=== PATIENT | male | born 1990 | race American Indian/Alaskan Native ===

== ENCOUNTER 2019-06-24 04:54 | Emergency (ER) | payer OTHER ==
--- NOTE | 2019-06-24 05:14 | Emergency Department Report ---
<DIMPLE MERCER - Last Filed: 06/24/19 07:06> ED Abdominal Pain HPI - General Chief Complaint: Abdominal Pain Stated Complaint: ABD PAIN Time Seen by Provider: 06/24/19 05:08 Source: patient Mode of arrival: Ambulatory Limitations: No Limitations - History of Present Illness Initial Comments: Mr Joiner is s 29 y/o aam who presents for generalized abd pain and cramping x 1 week. pt denies n/v no fever or chills, no melena. state hard stools "rabbit pellets. pt is tolerating po intake. no hx of gerd, ibs, or crohns. MD Complaint: abdominal pain Onset/Timin -: week(s) Location: LLQ, RLQ Radiation: LLQ, RLQ Migration to: no migration Severity: moderate Severity scale (0 -10): 5 Quality: cramping Consistency: constant Improves With: nothing Worsens With: nothing Associated Symptoms: diarrhea, constipation. denies: nausea, vomiting, fever, chills, dysuria, melena - Related Data Previous Rx's Medication Instructions Recorded Last Taken Type Docusate Sodium [Colace] 100 mg PO BID PRN #20 capsule 06/24/19 Unknown Rx HYDROcodone/APAP 7.5-325 [Warrens 1 each PO Q8HR PRN #12 tablet 06/24/19 Unknown Rx 7.5/325] Allergies Allergy/AdvReac Type Severity Reaction Status Date / Time No Known Allergies Allergy Unverified 06/24/19 06:01 ED Review of Systems Constitutional: denies: chills, fever Eyes: denies: eye pain, eye discharge, vision change ENT: denies: ear pain, throat pain Respiratory: denies: cough, shortness of breath, wheezing Cardiovascular: denies: chest pain, palpitations Endocrine: no symptoms reported Gastrointestinal: abdominal pain, diarrhea, constipation. denies: nausea, vomiting, hematemesis, melena, hematochezia Genitourinary: denies: urgency, dysuria, frequency, hematuria Musculoskeletal: denies: back pain, joint swelling, arthralgia Skin: denies: rash, lesions Neurological: denies: headache, weakness, paresthesias Psychiatric: as per HPI Hematological/Lymphatic: denies: easy bleeding, easy bruising ED Past Medical Hx - Past Medical History Previous Medical History?: No - Surgical History Past Surgical History?: No - Social History Smoking Status: Never Smoker Substance Use Type: None - Medications Home Medications: Home Medications Medication Instructions Recorded Confirmed Last Taken Type Docusate Sodium [Colace] 100 mg PO BID PRN #20 capsule 06/24/19 Unknown Rx HYDROcodone/APAP 7.5-325 [Warrens 1 each PO Q8HR PRN #12 tablet 06/24/19 Unknown Rx 7.5/325] ED Physical Exam - General Limitations: No Limitations General appearance: alert, in no apparent distress - Head Head exam: Present: atraumatic, normocephalic - Eye Eye exam: Present: normal appearance, PERRL, EOMI Pupils: Present: normal accommodation - ENT ENT exam: Present: mucous membranes moist - Neck Neck exam: Present: normal inspection - Respiratory Respiratory exam: Present: normal lung sounds bilaterally. Absent: respiratory distress, wheezes - Cardiovascular Cardiovascular Exam: Present: regular rate, normal rhythm, normal heart sounds. Absent: systolic murmur, diastolic murmur, rubs, gallop - GI/Abdominal GI/Abdominal exam: Present: distended, tenderness (bilat lower abd), normal bowel sounds. Absent: guarding, rebound, rigid, bruit, hernia - Rectal Rectal exam: Present: deferred - exam: Present: other (deferred) - Extremities Exam Extremities exam: Present: normal inspection, full ROM. Absent: tenderness - Back Exam Back exam: Present: normal inspection, full ROM. Absent: tenderness, CVA tenderness (R), CVA tenderness (L) - Neurological Exam Neurological exam: Present: alert, oriented X3, CN II-XII intact, normal gait - Psychiatric Psychiatric exam: Present: normal affect, normal mood - Skin Skin exam: Present: warm, dry, intact, normal color. Absent: rash ED Medical Decision Making - Lab Data Result diagrams: 06/24/19 05:36 06/24/19 05:36 Labs 06/24/19 06/24/19 06/24/19 05:36 05:36 05:57 WBC 8.1 RBC 5.22 H Hgb 14.6 Hct 44.3 MCV 85 MCH 28 MCHC 33 RDW 12.7 L Plt Count 195 Sodium 133 L Potassium 4.0 Chloride 96.2 L Carbon Dioxide 20 L Anion Gap 21 BUN 7 L Creatinine 0.8 Estimated GFR > 60 BUN/Creatinine Ratio 9 Glucose 317 H Calcium 9.1 Total Bilirubin 0.20 AST 47 H ALT 37 Alkaline Phosphatase 76 Total Protein 8.2 Albumin 4.0 Albumin/Globulin Ratio 1.0 Lipase 19 Urine Color Yellow Urine Turbidity Clear Urine pH 6.0 Ur Specific [place] 1.024 Urine Protein 100 mg/dl Urine Glucose (UA) >=500 Urine Ketones Tr Urine Blood Neg Urine Nitrite Neg Urine Bilirubin Neg Urine Urobilinogen < 2.0 Ur Leukocyte Esterase Neg Urine WBC (Auto) 29.0 H Urine RBC (Auto) 1.0 Urine Mucus 1+ - Radiology Data Radiology results: report reviewed, image reviewed Findings [facility] [address] [place] [address] XRay Report Signed Patient: GIRMA JOINER MR#: [id number] : 1990 Acct:[id number] Age/Sex: 29 / M ADM Date: 06/24/19 Loc: ED Attending Dr: Ordering Physician: DIMPLE MERCER NP Date of Service: 06/24/19 Procedure(s): XR abdomen 1V ap Accession Number(s): [id number] cc: DIMPLE MERCER NP Fluoro Time In Minutes: ABDOMEN 1 VIEW(S) INDICATION / CLINICAL INFORMATION: Generalized abdominal pain. COMPARISON: None available. FINDINGS: TUBES / LINES: None. BOWEL GAS PATTERN: The bowel gas pattern is nonobstructive. ADDITIONAL FINDINGS: No radiodensities overlie the abdomen to suggest obs tructing renal or ureteral stone. Evaluation of bony structures demonstrates no acute bony abnormality. IMPRESSION: 1. No radiographic evidence of acute intra-abdominal process. Signer Name: Veronica Zavala MD Signed: 06/24/2019 5:42 AM Workstation Name: [id number] Transcribed By: EB Dictated By: Veronica Zavala MD Electronically Authenticated By: Veronica Zavala MD Signed Date/Time: 06/24/19541 DD/ 7 TD/TT: - Medical Decision Making pt pending CT Abd and Pelvis, pt care signed tut to Jonathan REED will dispo appropriately ED Disposition Clinical Impression: Rectal malignant neoplasm, Abdominal pain Disposition: DC-01 TO HOME OR SELFCARE Condition: Stable Instructions: Colorectal Cancer (ED) Prescriptions: Docusate Sodium [Colace] 100 mg PO BID PRN #20 capsule PRN Reason: Constipation HYDROcodone/APAP 7.5-325 [Warrens 7.5/325] 1 each PO Q8HR PRN #12 tablet PRN Reason: Pain Referrals: STEVO COLBY MD [Staff Physician] - 3-5 Days DIPIKA KHAN MD [Referring] - 3-5 Days GAIL BATRES DO [Staff Physician] - 3-5 Days Forms: Work/School Release Form(ED) <NIECY PHAN - Last Filed: 06/24/19 10:14> ED Review of Systems ROS: Stated complaint: ABD PAIN Other details as noted in HPI ED Course Vital Signs 06/24/19 04:57 Temperature 98.4 F Pulse Rate 106 H Respiratory 18 Rate Blood Pressure 150/100 O2 Sat by Pulse 95 Oximetry ED Medical Decision Making - Lab Data Result diagrams: 06/24/19 05:36 06/24/19 05:36 - Radiology Data Patient: GIRMA JOINER MR#: [id number] : 1990 Acct:[id number] Age/Sex: 29 / M ADM Date: 06/24/19 Loc: ED Attending Dr: Ordering Physician: DIMPLE MERCER NP Date of Service: 06/24/19 Procedure(s): CT abdomen pelvis w con Accession Number(s): [id number] cc: DIMPLE MERCER NP CT ABDOMEN AND PELVIS WITH CONTRAST INDICATION / CLINICAL INFORMATION: Abdominal pain. Duration one week TECHNIQUE: Axial CT images were obtained through the abdomen and pelvis after 100 mL Omnipaque [address] scans at this location are performed using CT dose reduction for ALARA by means of automated exposure control. COMPARISON: Abdominal radiograph from earlier the same day FINDINGS: LOWER CHEST: Mild platelike atelectasis at the lung bases. LIVER: No discrete liver lesion is identified. Subtle heterogeneity of enhancement in the liver is felt more likely reflective of inhomogeneous perfusion than presence of discrete mass lesion/s. BILIARY SYSTEM: No significant abnormality. PANCREAS: No significant abnormality. SPLEEN: No significant abnormality. ADRENALS: No significant abnormality. KIDNEYS and URETERS: No significant abnormality. STOMACH / BOWEL: The stomach and small intestine are unremarkable. The appendix is prominent with 1 cm diameter; however, there is no periappendiceal inflammatory change, and there are foci of gas seen in the lumen of the appendix. Acute appendicitis is felt unlikely. The terminal ileum at the ileocecal valve appears abnormally thickened, and there are multiple enlarged mesocolic nodes at this site, with a confluent martin mass in this region measuring 2.7 x 1.7 cm on series 2 image 97. In the rectum, there is an eccentrically located mass at the right side that measures 4.2 cm AP by 2.5 cm in thickness and at least 3.4 cm in craniocaudal length (series 2 image 148). There are enlarged perirectal nodes as well as multiple enlarged nodes along the course of the sigmoid colon. PERITONEUM: Trace perihepatic free fluid is present over the dome of the right lobe. No free air. No fluid collection. LYMPH NODES: In addition to the lymphadenopathy described above in the region of the cecum, along the sigmoid colon and in the perirectal space, there are numerous enlarged retroperitoneal lymph nodes in the abdomen. For instance, a 1.1 cm short axis left common iliac chain node on series 2 image 115, enlarged node at the root of the mesentery on image 82 1.2 cm in short axis. Multiple prominent central mesenteric nodes are also noted in the mid abdomen, for instance 0.9 cm node centrally on series 2 image 63 and slightly more anterior subcentimeter node on image 64. Scattered, mildly prominent mesocolic nodes are present along the entire course of the colon. VASCULAR STRUCTURES: No significant abnormality. URINARY BLADDER: No significant abnormality. REPRODUCTIVE ORGANS: No significant abnormality. ADDITIONAL FINDINGS: None. SKELETAL SYSTEM: No significant abnormality. IMPRESSION: 1. Findings are highly concerning for malignancy involving the rectum with martin metastases, and there is likely a synchronous malignancy in the cecum or terminal ileum, also with regional martin metastases. Further evaluation with endoscopy for biopsy is recommended. PET/CT also will likely be useful in this setting to evaluate the extent of metastatic involvement. Given the patient's age, underlying genetic factors such as HNPCC/Cisneros syndrome should be considered. 2. It appears that there is a trace volume of perihepatic fluid over the dome, nonspecific. In this setting, however, the possibility of peritoneal metastasis must be considered. I do not see any discrete peritoneal nodules. Signer Name: Mario Reilly MD Signed: 06/24/2019 9:12 AM Workstation Name: [id number] Transcribed By: KINGSLEY Dictated By: Mario Reilly MD Electronically Authenticated By: Mario Reilly MD Signed Date/Time: 06/24/19911 DD/ 0 TD/TT: - Medical Decision Making Review of patient's CT of abdomen shows a patient has colorectal metastatic cancer. Discussed with we will refer patient to colorectal provider as well as general surgeon and her primary care provider. I spoke with patient in length the importance of being followed up as soon as possible. Patient will be discharged home on pain medication and stool softener. Patient verbalized understanding Critical care attestation.: If time is entered above; I have spent that time in minutes in the direct care of this critically ill patient, excluding procedure time. ED Disposition Is pt being admited?: No Does the pt Need Aspirin: No
[2019-06-24] MEDS ORDERED: SODIUM CHLORIDE 0.9% 1000 ML 1,000 ML IV ONE (05:17)
--- NOTE | 2019-06-24 05:46 | XRay Report ---
ABDOMEN 1 VIEW(S) INDICATION / CLINICAL INFORMATION: Generalized abdominal pain. COMPARISON: None available. FINDINGS: TUBES / LINES: None. BOWEL GAS PATTERN: The bowel gas pattern is nonobstructive. ADDITIONAL FINDINGS: No radiodensities overlie the abdomen to suggest obstructing renal or ureteral s tone. Evaluation of bony structures demonstrates no acute bony abnormality. IMPRESSION: 1. No radiographic evidence of acute intra-abdominal process. Signer Name: Veronica Zavala MD Signed: 06/24/2019 5:42 AM Workstation Name: [id number]
[2019-06-24 06:25] LABS: Hematocrit 44.3 % (35.5-45.6); Hemoglobin 14.6 gm/dl (11.8-15.2); Mean Corpuscular HGB Conc 33 % (32-34); Mean Corpuscular Volume 85 fl (84-94); Platelet Count 195 K/mm3 (140-440); Red Blood Count 5.22 M/mm3 (3.65-5.03); Red Cell Distribution Width 12.7 % (13.2-15.2)
[2019-06-24 06:30] LABS: Alanine Aminotransferase 37 units/L (7-56); BUN/Creatinine Ratio 9; Blood Urea Nitrogen 7 mg/dL (9-20); Calcium 9.1 mg/dL (8.4-10.2); Hemolysis Index 57
[2019-06-24 07:00] LABS: Bilirubin,Urine NEG (Negative); Blood,Urine NEG (Negative); Color,Urine Yellow (Yellow); Mucus,Urine 1+ /HPF; Urobilinogen,Urine < 2.0 mg/dL (<2.0)
--- NOTE | 2019-06-24 09:16 | Cat Scan Report ---
CT ABDOMEN AND PELVIS WITH CONTRAST INDICATION / CLINICAL INFORMATION: Abdominal pain. Duration one week TECHNIQUE: Axial CT images were obtained through the abdomen and pelvis after 100 mL Omnipaque [address] scans at this location are performed using CT dose reduction for ALARA by means of automated exposure control. COMPARISON: Abdominal radiograph from earlier the same day FINDINGS: LOWER CHEST: Mild platelike atelectasis at the lung bases. LIVER: No discrete liver lesion is identified. Subtle heterogeneity of enhancement in the liver is fe lt more likely reflective of inhomogeneous perfusion than presence of discrete mass lesion/s. BILIARY SYSTEM: No significant abnormality. PANCREAS: No significant abnormality. SPLEEN: No significant abnormality. ADRENALS: No significant abnormality. KIDNEYS and URETERS: No significant abnormality. STOMACH / BOWEL: The stomach and small intestine are unremarkable. The appendix is prominent with 1 c m diameter; however, there is no periappendiceal inflammatory change, and there are foci of gas seen in the lumen of the appendix. Acute appendicitis is felt unlikely. The terminal ileum at the ileocecal valve appears abnormally thickened, and there are multiple enlarg ed mesocolic nodes at this site, with a confluent martin mass in this region measuring 2.7 x 1.7 cm on series 2 image 97. In the rectum, there is an eccentrically located mass at the right side that measures 4.2 cm AP by 2. 5 cm in thickness and at least 3.4 cm in craniocaudal length (series 2 image 148). There are enlarged perirectal nodes as well as multiple enlarged nodes along the course of the sigmoid colon. PERITONEUM: Trace perihepatic free fluid is present over the dome of the right lobe. No free air. No fluid collection. LYMPH NODES: In addition to the lymphadenopathy described above in the region of the cecum, along the sigmoid colon and in the perirectal space, there are numerous enlarged retroperitoneal lymph nodes i n the abdomen. For instance, a 1.1 cm short axis left common iliac chain node on series 2 image 115, enlarged node at the root of the mesentery on image 82 1.2 cm in short axis. Multiple prominent centr al mesenteric nodes are also noted in the mid abdomen, for instance 0.9 cm node centrally on series 2 image 63 and slightly more anterior subcentimeter node on image 64. Scattered, mildly prominent meso colic nodes are present along the entire course of the colon. VASCULAR STRUCTURES: No significant abnormality. URINARY BLADDER: No significant abnormality. REPRODUCTIVE ORGANS: No significant abnormality. ADDITIONAL FINDINGS: None. SKELETAL SYSTEM: No significant abnormality. IMPRESSION: 1. Findings are highly concerning for malignancy involving the rectum with martin metastases, and ther e is likely a synchronous malignancy in the cecum or terminal ileum, also with regional martin metasta ses. Further evaluation with endoscopy for biopsy is recommended. PET/CT also will likely be useful i n this setting to evaluate the extent of metastatic involvement. Given the patient's age, underlying genetic factors such as HNPCC/Cisneros syndrome should be considered. 2. It appears that there is a trace volume of perihepatic fluid over the dome, nonspecific. In this s etting, however, the possibility of peritoneal metastasis must be considered. I do not see any discre te peritoneal nodules. Signer Name: Mario Reilly MD Signed: 06/24/2019 9:12 AM Workstation Name: [id number]
[2019-06-24 10:31] VITALS: BP 145/92
== END 2019-06-24 10:31 | disposition home or self-care (01) ==
LOC: ED 04:54
DX: C21.8 Malignant neoplasm of overlapping sites of rectum, anus and anal canal (principal); Z79.899 Other long term (current) drug therapy
CPT/HCPCS: 36415; 74018; 74177; 80053; 81001; 83690; 85027; 87086; 99284; J7030; Q9967